=== PATIENT | male | born 1985 | race Caucasian/White ===

== ENCOUNTER 2021-05-21 10:02 | Emergency (ER) | payer MEDICAID ==
[2021-05-21] MEDS ORDERED: Methadone 10 MG Tab PO STA (10:40)
[2021-05-21] MEDS ORDERED: Methadone 5 MG Tab PO STA (10:41)
[2021-05-21 15:49] VITALS: BP 122/77; PULSE 107
== END 2021-05-21 11:00 | disposition home or self-care (01) ==
LOC: FB.ED 10:02
DX: F11.10 Opioid abuse, uncomplicated (principal); Z88.0 Allergy status to penicillin; Z79.899 Other long term (current) drug therapy
CPT/HCPCS: 99283; A9270; 99282